=== PATIENT | male | born 1985 | race Caucasian/White ===

== ENCOUNTER 2023-01-06 16:24 | Emergency (ER) | payer SELFPAY ==
[~2023-01-06] VITALS: Ht 175.3 cm; Wt 74.0 kg
[2023-01-06 16:33] VITALS: BP 156/102
[2023-01-06] MEDS ORDERED: SODIUM CHLORIDE 0.9% 1,000 ML IV ONE (17:00)
== END 2023-01-06 17:24 | disposition left against medical advice (07) ==
LOC: ER 16:24
DX: T50.905A Adverse effect of unspecified drugs, medicaments and biological substances, initial encounter (principal); Y93.89 Activity, other specified
CPT/HCPCS: 99283; J7030